=== PATIENT | male | born 1960 | race Caucasian/White ===

== ENCOUNTER 2019-09-26 22:16 | Emergency (ER) | payer OTHER, SELFPAY ==
--- NOTE | ~2019-09-26 | CT_ITS ---
EXAMINATION: CT abdomen pelvis w con DATE: 09/27/2019 01:28 INDICATION: Right lower quadrant abdominal pain. Nausea and vomiting. TECHNIQUE: Computed tomography (CT) of the abdomen and pelvis was performed with 100 cc Omnipaque 350 intravenous contrast. Automated exposure control and iterative reconstruction technique were employe d. Exam dose: 675.06 mGy-cm total exam DLP. COMPARISON: None. FINDINGS: Calcified pulmonary granulomas. The lower lung zones are clear of infiltrate or consolidati on. Normal heart size. No pericardial or pleural effusion. The liver, gallbladder, bile ducts, pancreas, pancreatic duct and spleen and adrenal glands are unrem arkable. Small upper pole left renal cyst. The kidneys are unremarkable, without urinary tract calculus or hyd roureteronephrosis. The urinary bladder is unremarkable. Prostate enlargement and calcifications. Normal caliber and mild atherosclerotic calcification of the abdominal aorta and iliac arteries. No i ntraperitoneal or retroperitoneal or pelvic mass lesion or adenopathy or ascites. Normal appendix. No bowel obstruction or intraperitoneal free air. Small fat-containing umbilical hernia. Bilateral L5 pars interarticularis defects with grade 1 anterolisthesis at L5-S1. Moderate degenerative disc disease at L3-4. IMPRESSION: Normal appendix Bilateral L5 pars intra-articular is defects with grade 1 anterolisthesis at L5-S1 Reviewed, dictated and finalized at [facility]. Reviewed, dictated and finalized at [facility]. DRAFTSMAN IMPRESSION: Normal appendix Bilateral L5 pars intra-articular is defects with grade 1 anterolisthesis at L5 -S1
[2019-09-26 22:44] VITALS: BP 155/86; PULSE 99; RESP 22; TEMP 37.4; O2SAT 100
[2019-09-26 22:47] LABS: Basophils Absolute Auto 0.1 K/mm3 (0.0-0.1); Basophils Percent Auto 0.8 % (0.2-1.2); Eosinophils Percent Auto 0.1 % (0-4.4); Hematocrit 45.3 % (42.0-52.0); Hemoglobin 15.1 g/dL (14.0-18.0); Immature Granulocyte Absolute 0.02 K/mm3 (0.00-0.031); Immature Granulocyte Percent A 0.3 % (0-0.5); Lymphocytes Absolute Auto 1.67 K/mm3 (0.9-3.2); Lymphocytes Percent Auto 21.1 % (18.3-44.2); Mean Corpuscular HGB Conc 33.3 g/dl (32-36); Mean Corpuscular Volume 89.9 fl (80-100); Mean Platelet Volume 9.6 fl (7.4-10.4); Monocytes Absolute Auto 0.6 K/mm3 (0.1-0.6); Monocytes Percent Auto 7.1 % (2.6-8.5); Neutrophils Absolute Auto 5.6 K/mm3 (1.3-6.7); Neutrophils Percent Auto 70.6 % (45.5-73.1); Platelet Count Result 270 k/mm3 (150-375); Red Blood Count 5.04 M/mm3 (4.6-6.20); Red Cell Distribution Width 12.7 % (11.5-14.5); White Blood Count 7.9 K/mm3 (4.5-10.0)
[2019-09-26 22:59] LABS: Alanine Aminotransferase 29 U/L (4-50); Albumin Level 4.7 g/dL (3.5-5.1); Alkaline Phosphatase 58 U/L (38-126); Aspartate Amino Transferase 21 U/L (17-59); Bilirubin,Total 0.5 mg/dL (0.2-1.3); Blood Urea Nitrogen 10 mg/dL (9-20); Calcium 10.2 mg/dL (8.4-10.2); Carbon Dioxide 26 mmol/L (22-30); Chloride 99 mmol/L (98-107); Estimated CRCL calculation 73 ml/min; Estimated Glomerular Filt Rate > 60; Glucose 133 mg/dL (75-110); Lipase 51 U/L (23-300); Potassium 3.8 mmol/L (3.4-5.0); Sodium 137 mmol/L (137-145)
[2019-09-27 00:35] VITALS: BP 158/98; PULSE 83; RESP 16; TEMP 36.9; O2SAT 97
--- NOTE | 2019-09-27 00:41 | ED.ABDPAIN ---
HPI - Abdominal Pain General Chief Complaint: Abdominal Pain Stated Complaint: ABD PAIN Time Seen by Provider: 09/27/19 00:37 Source: patient Mode of arrival: ambulatory Limitations: no limitations History of Present Illness HPI narrative: A 59 y/o male presents to the ED with c/o burning lower ABD pain. He states that the ABD pain has been intermittent the past 2 months but worsened on 09/24/19. Pt reports loose stool and nausea, but denies vomiting, CP, flank pain, dysuria, ABD bloating, hematuria, and back pain. He took Emetrol yesterday with no relief. He denies any sick contacts or being around young children. Pt adds that he occasionally has a pinching sensation in his right flank when he sits down and watches television. Dr. Sweet is his PCP. MD elicited complaint: abdominal pain (Lower) Onset (ago): month(s) (2) Pain Consistency: intermittent and other (Worsening) Location: other (Lower) Quality: burning Relieving factors: nothing Associated symptoms: nausea and other (Loose stools) Related Data Allergies Allergy/AdvReac Type Severity Reaction Status Date / Time amoxicillin [From Augmentin] Allergy Unknown Verified 09/27/19 00:41 clavulanic acid Allergy Unknown Verified 09/27/19 00:41 [From Augmentin] iohexol Allergy Itching Verified 09/27/19 01:40 [From contrast - CT, X-RAY] prochlorperazine Allergy Unknown Verified 09/27/19 00:40 [From Compazine] Bgdppil-Zvn-Fmu Reductase Allergy Unknown Verified 09/27/19 00:41 Inhibitor Review of Systems Review of Systems: Narrative: CONSTITUTIONAL: Denies fever, chills, or sweats. EYES: Denies visual changes, redness, or discharge. ENT: Denies rhinorrhea, congestion, sore throat, or otalgia. CARDIOVASCULAR: Denies chest pain, palpitations, or edema. RESPIRATORY: Denies cough or dyspnea. GASTROINTESTINAL: Denies flank pain, ABD bloating, vomiting, or diarrhea. Reports nausea, loose stools, and lower ABD pain. GENITOURINARY: Denies dysuria or hematuria. SKIN: Denies rash or itching. MUSCULOSKELETAL: Denies back pain, joint pain, or myalgia. NEUROLOGIC: Denies headache, numbness, or weakness. All systems reviewed & are unremarkable except as noted in HPI and below PMFSH Past Medical History Medical History (Updated 09/27/19 @ 03:50 by Monet Parker MD) Healthy adult Surgical History Surgical History (Updated 09/27/19 @ 00:49 by Yvonne Ng) No pertinent past surgical history Social History Social History (Updated 09/27/19 @ 00:56 by Yvonne Ng) Smoking status: Unknown if ever smoked Gender identity (if verbalized by the patient): Male Exam Narrative: Exam Narrative: GENERAL: Well-appearing, well-nourished, and in no acute distress. HEAD: Normocephalic, atraumatic. EYES: PERRLA and EOMI. ENT: Nares clear, no rhinorrhea or epistaxis. Mucous membranes moist. NECK: Supple. CHEST: Clear to auscultation. No respiratory distress. HEART: Regular rate and rhythm. No murmur heard. Normal peripheral pulses. ABDOMEN: Soft, mild RLQ tenderness, nondistended, normal active bowel sounds. No rebound. No guarding. EXTREMITIES: Normal range of motion. No edema. SKIN: Warm, dry, no rash. NEURO: No focal deficits. Alert and oriented X3. Course Course Emergency Course: Patient's abdomen is soft without significant pain or signs of surgical abdomen on serial exams. Patient has no recurrent right lower quadrant pain. Lab and imaging evaluations are reviewed and patient is felt to be a reasonable candidate for outpatient management. At this point, no leukocytosis, no focal pain, I do not feel his symptoms are consistent with appendicitis. Patient was instructed as to limitations of imaging and lab evaluation and encouraged to return to the emergency department or primary physician for repeat exam in 12 hours if continued or worsening pain. Vital Signs Vital signs: Vital Signs Temperature 37.4 C 09/26/19 22:44 Pulse Rate 99 09/26/19 22:44 Respira
[2019-09-27 00:57] LABS: Add Urine Microscopic? YES; Appearance Urine Clear (Clear); Bilirubin Urine Negative (Negative); Blood Urine Negative (Negative); Color Urine Yellow (Yellow); Glucose Urine UA Negative (Negative); Ketones Urine Negative (Negative); Leukocyte Esterase Ur Negative LEU/UL (Negative); Mucus Urine Few /lpf; Nitrate Urine Negative (Negative); Protein Urine Negative (Negative); RBC Urine 0-2 /hpf (0-2); Specific Grav Ur 1.019 (1.001-1.035); WBC Urine 0-3 /hpf
[2019-09-27] MEDS: FAMOTIDINE 20 MG/2 ML VIAL IV PUSH (01:14)
[2019-09-27] MEDS: SODIUM CHLORIDE 0.9% IV 1,000 ML 999 ML IV CONT (01:16)
--- NOTE | 2019-09-27 01:20 | PC.NURSE ---
Patient refused Morphine at this time. EDP Elena notified.
--- NOTE | 2019-09-27 01:33 | PC.NURSE ---
Patient states he began to feel extremely itchy after IV contrast dye, patient denies any SOB or difficulty breathing. Per EDP Elena verbal order read-back give 50mg Benadryl IVP.
[2019-09-27 01:35] VITALS: BP 111/70; PULSE 102; RESP 16; O2SAT 99
[2019-09-27 01:45] VITALS: TEMP 36.9
[2019-09-27 03:00] VITALS: BP 134/80; PULSE 81; RESP 18; O2SAT 98
[2019-09-27 04:26] VITALS: BP 138/83; PULSE 80; RESP 14; TEMP 36.4; O2SAT 97
== END 2019-09-27 04:29 | disposition home or self-care (01) ==
PROVIDERS: Emergency Medicine; Emergency Provider Emergency Medicine; PCP Internal Medicine
DX: K52.9 Noninfective gastroenteritis and colitis, unspecified (principal)
CPT/HCPCS: 36415; 74177; 80053; 81001; 83690; 85025; 96361; 96374; 96375; 99284; J0131; J1200; J7030; Q9967

== ENCOUNTER 2019-09-28 00:21 | Emergency (ER) | payer OTHER, SELFPAY ==
--- NOTE | ~2019-09-28 | XR_ITS ---
XR chest 2V DATE: 09/28/2019 00:54 INDICATION: Substernal chest pain TECHNIQUE: PA and lateral views COMPARISON: None FINDINGS: Normal heart size. No hilar or mediastinal enlargement. No pulmonary infiltrate or consolid ation, pleural effusion or pulmonary vascular congestion or pneumothorax. Thoracolumbar scoliosis. IMPRESSION: No active cardiopulmonary disease Thoracolumbar scoliosis Reviewed, dictated and finalized at [facility] VE DIRECTORY SPECIALIST
[2019-09-28 00:26] VITALS: BP 172/103; PULSE 94; PULSE 99; RESP 18; TEMP 36.8; O2SAT 97
--- NOTE | 2019-09-28 00:30 | ECG_ITS ---
Measurements Intervals [place] Rate: 93 P: 46 WY: 149 QRS: 34 QRSD: 108 T: 11 QT: 356 QTc: 445 Interpretive Statements SINUS RHYTHM BORDERLINE ST-T WAVE ABNORMALITY- ANTEROLAT/INF LEADS BASELINE ARTIFACT- II, III, AVR, AVF BORDERLINE ECG Electronically Signed On 09-28-2019 8:10:59 DOOR SERVICEMAN by Devang Whitehead D.O.
[2019-09-28 00:47] LABS: Basophils Absolute Auto 0.1 K/mm3 (0.0-0.1); Eosinophils Percent Auto 0.1 % (0-4.4); Hematocrit 43.5 % (42.0-52.0); Hemoglobin 14.7 g/dL (14.0-18.0); Immature Granulocyte Absolute 0.04 K/mm3 (0.00-0.031); Immature Granulocyte Percent A 0.5 % (0-0.5); Lymphocytes Absolute Auto 2.17 K/mm3 (0.9-3.2); Lymphocytes Percent Auto 26.1 % (18.3-44.2); Mean Corpuscular HGB Conc 33.8 g/dl (32-36); Mean Corpuscular Hemoglobin 30.3 pg (26-34); Mean Corpuscular Volume 89.7 fl (80-100); Mean Platelet Volume 9.7 fl (7.4-10.4); Monocytes Absolute Auto 0.7 K/mm3 (0.1-0.6); Monocytes Percent Auto 8.2 % (2.6-8.5); Neutrophils Absolute Auto 5.3 K/mm3 (1.3-6.7); Neutrophils Percent Auto 64.1 % (45.5-73.1); Platelet Count Result 267 k/mm3 (150-375); Red Blood Count 4.85 M/mm3 (4.6-6.20); Red Cell Distribution Width 12.5 % (11.5-14.5); White Blood Count 8.3 K/mm3 (4.5-10.0)
[2019-09-28 00:56] LABS: Partial Thromboplastin Time 24.7 SECONDS (22.3-36.8); Prothrombin Time 12.5 Seconds (11.1-14.7)
--- NOTE | 2019-09-28 00:56 | ED.CHESTPAIN ---
HPI - Chest Pain General Chief Complaint: Chest Pain Stated Complaint: CP Time Seen by Provider: 09/28/19 00:29 Source: patient and RN notes reviewed Mode of arrival: ambulatory Limitations: no limitations History of Present Illness HPI narrative: A 59 y/o male presents to the ED with intermittent, burning, stersubnal CP beginning today. He states that he was seen here yesterday d/t ABD pain and was dx with gastroenteritis. He reports that he picked up Bentyl and Zofran today and shortly after he took them he developed burning substernal CP. He notes increased anxiety, intermittent nausea, and intermittent DULCE hand and DULCE foot tingling. He also notes that his pain is aggravated when he lays flat and alleviated when he sits up. He denies any radiation of the pain. He also denies any sweats, fevers, chills, SOB, cough, or back pain. MD complaint: chest pain Onset (ago): hour(s) (today) Timing of current episode: episodic Onset: other (shortly after taking his new Bentyl and Zofran) Pain location: substernal Pain radiation: none Quality: burning Relieving factors: sitting upright Exacerbating factors: other (laying down) Context: new medications Associated symptoms: nausea and other (increased anxiety and intermittent DULCE hand and DULCE foot tingling) Risk Factors Coronary artery disease risk factors: none Related Data Allergies Allergy/AdvReac Type Severity Reaction Status Date / Time amoxicillin [From Augmentin] Allergy Unknown Verified 09/27/19 00:41 clavulanic acid Allergy Unknown Verified 09/27/19 00:41 [From Augmentin] iohexol Allergy Itching Verified 09/27/19 01:40 [From contrast - CT, X-RAY] prochlorperazine Allergy Unknown Verified 09/27/19 00:40 [From Compazine] Lqqoemw-Vsg-Obu Reductase Allergy Unknown Verified 09/27/19 00:41 Inhibitor Review of Systems Review of Systems: Narrative: CONSTITUTIONAL: Denies fever, chills, or sweats. CARDIOVASCULAR: Reports substernal CP. RESPIRATORY: Denies cough or dyspnea. GASTROINTESTINAL: Reports nausea. MUSCULOSKELETAL: Denies back pain. NEUROLOGIC: Reports DULCE hand tingling and DULCE foot tingling. PSYCHIATRIC: Reports anxiety. All systems reviewed & are unremarkable except as noted in HPI and below PMFSH Past Medical History Medical History Healthy adult Surgical History Surgical History No pertinent past surgical history Social History Social History Smoking status: Unknown if ever smoked Gender identity (if verbalized by the patient): Male Exam Narrative: Exam Narrative: GENERAL: Well-appearing, well-nourished, and in no acute distress. HEAD: Normocephalic, atraumatic. EYES: PERRLA and EOMI. ENT: Nares clear, no rhinorrhea or epistaxis. Mucous membranes moist. NECK: Supple. CHEST: Clear to auscultation. No respiratory distress. No chest wall tenderness. HEART: Regular rate and rhythm. No murmur heard. Normal peripheral pulses. ABDOMEN: Soft, nontender, nondistended, normal active bowel sounds. EXTREMITIES: Normal range of motion. No edema. SKIN: Warm, dry, no rash. NEURO: No focal deficits. Alert and oriented X3. Course Vital Signs Vital signs: Vital Signs Temperature 36.8 C 09/28/19 00:26 Pulse Rate 99 09/28/19 00:26 Respiratory Rate 18 09/28/19 00:26 Blood Pressure 172/103 H 09/28/19 00:26 Pulse Oximetry 97 09/28/19 00:26 Temperature 36.8 C 09/28/19 00:26 Pulse Rate 75 09/28/19 03:40 Respiratory Rate 18 09/28/19 03:40 Blood Pressure 129/74 09/28/19 03:40 Pulse Oximetry 96 09/28/19 03:40 MDM - Chest Pain MDM Narrative Medical decision making narrative: The patient presented for evaluation of chest pain. Patient's pain is been intermittent throughout the day, is worse when he is lying down and worsened with eating. Patient also reports he has had some difficulty s
[2019-09-28 00:57] LABS: Blood Urea Nitrogen 9 mg/dL (9-20); Calcium 9.7 mg/dL (8.4-10.2); Carbon Dioxide 26 mmol/L (22-30); Chloride 99 mmol/L (98-107); Estimated Glomerular Filt Rate > 60; Glucose 103 mg/dL (75-110); Potassium 3.9 mmol/L (3.4-5.0); Sodium 141 mmol/L (137-145)
[2019-09-28 01:10] LABS: Troponin I < 0.012 ng/mL (0.000-0.034)
[2019-09-28] MEDS: NITROGLYCERIN SL 0.4 MG TABLET SUBLINGUAL (01:45)
[2019-09-28] MEDS: MORPHINE SULFATE 4 MG/ML INJ IV PUSH (01:46)
[2019-09-28] MEDS: BELLADONNA ALK/PHENOB ELIX 10 ML, MAG HYDROX/ALUMINUM HYD/SIMETH 30 ML, LIDOCAINE HCL 2... PO (01:46)
[2019-09-28 03:40] VITALS: BP 129/74; PULSE 75; RESP 18; O2SAT 96
[2019-09-28 04:12] LABS: Troponin I < 0.012 ng/mL (0.000-0.034)
[2019-09-28 05:07] VITALS: BP 126/77; PULSE 76; RESP 18; O2SAT 98
== END 2019-09-28 05:08 | disposition home or self-care (01) ==
PROVIDERS: Emergency Provider Emergency Medicine; PCP Internal Medicine
DX: R07.89 Other chest pain (principal); R94.31 Abnormal electrocardiogram [ECG] [EKG]
CPT/HCPCS: 36415; 71046; 80048; 84484; 85025; 85610; 85730; 93005; 96374; 99284; A9270; J2270

== ENCOUNTER 2019-10-13 01:50 | Day surgery (SDC) | payer OTHER, SELFPAY ==
[2019-10-08 13:36] VITALS: BMI 29.7
[2019-10-13 10:02] VITALS: BP 146/81; PULSE 88; RESP 18; TEMP 36.6; O2SAT 98; BMI 30.4
[2019-10-13] MEDS: LACTATED RINGERS 1,000 ML 150 ML IV CONT (10:15)
--- NOTE | 2019-10-13 10:30 | WPDANESEPPF ---
Anes - Initial Pre Proc Eval Procedure: Operation Date: 10/13/19 11:00 Proposed Procedures p Esophagogastroduodenoscopy - Narayan Nixon MD Date/Time: 10/13/19 10:30 Surgeon: Narayan Nixon MD Pre Op Diagnosis: Epigastric Pain/ Dysphagia Patient Data Age: 59 Gender: M Height: 5 ft 7 in Weight: 88.3 kg Last Vital Signs Temp 36.6 C 10/13/19 10:02 Pulse 88 10/13/19 10:02 Resp 18 10/13/19 10:02 BP 146/81 H 10/13/19 10:02 Pulse Ox 98 10/13/19 10:02 Allergies Allergy/AdvReac Type Severity Reaction Status Date / Time amoxicillin [From Augmentin] Allergy Unknown Verified 10/13/19 10:01 clavulanic acid Allergy Unknown Verified 10/13/19 10:01 [From Augmentin] iohexol Allergy Itching Verified 10/13/19 10:01 [From contrast - CT, X-RAY] prochlorperazine Allergy Unknown Verified 10/13/19 10:01 [From Compazine] Yixwaid-Wjy-Xuz Reductase Allergy Unknown Verified 10/13/19 10:01 Inhibitor Home Medications Medication Instructions Recorded Confirmed Type dicyclomine 10 mg PO BID 5 Days #10 cap 09/27/19 10/08/19 Rx famotidine [Pepcid] 20 mg PO BID 15 Days #30 tablet 09/27/19 10/08/19 Rx ondansetron HCl [Zofran] 4 mg PO Q8H #14 tablet 09/27/19 10/08/19 Rx ascorbic acid (vitamin C) [Vitamin 1 g PO DAILY 10/08/19 10/08/19 History C] cholecalciferol (vitamin D3) 5,000 unit PO DAILY 10/08/19 10/08/19 History [Vitamin D3] multivitamin 1 tablet PO DAILY 10/08/19 10/08/19 History Patient hx anesthesia problems: none Family hx anesthesia problems: none PMFSH Past Medical History Medical History (Updated 10/13/19 @ 10:31 by Vish Whitlock MD) Healthy adult Hyperlipidemia Obesity Surgical History Surgical History No pertinent past surgical history Social History Social History Smoking status: Unknown if ever smoked Gender identity (if verbalized by the patient): Male Anes - Eval Final PreProcedure Day of Procedure 10/13/19 10:30 Patient weight: obese Heart: regular rate and rhythm Lungs: clear to auscultation Airway: Mallampati scale class II Last oral intake: >/= 8 hours ASA classification: II Emergent: no Anesthetic plan: proceed Anesthesia type and monitoring: general GIVS and standard monitoring Informed Consent: The patient's anesthetic plan and its attendant risks and benefits were discussed with the patient/family/POA. Questions were solicited and answers provided to the satisfaction of the patient/family/POA.
--- NOTE | 2019-10-13 10:43 | PM.HPGS ---
History of Present Illness History of Present Illness Consent: Risks, benefits, and alternatives have been discussed and questions answered. Patient agrees to proceed with procedure. Chief complaint: Epigastric Pain/ Dysphagia Narrative: Endy Nixon is a 59 year old W male referred for gastroscopy for evaluation of epigastric abdominal pain which was severe for several days associated with nausea but no vomiting. This precipitated a visit to the emergency room. Patient had a CT scan of the abdomen and pelvis which was negative blood work was normal. There is placed on Pepcid his pain is improved but not completely resolved. Patient had no lower GI symptoms. He states he had a colonoscopy 12 years ago and had a colo guard test a year ago which was negative. No family history of gallbladder disease. Patient denies any imfc-ygs-vjlhzoi nonsteroidal inflammatory drugs. No prior history of peptic ulcer disease. Patient also with a chronic history of intermittent solid food dysphagia usually with meats if he does not chew this well. He does have occasional heartburn. [facility] Past Medical History Medical History Healthy adult Hyperlipidemia Obesity Surgical History Surgical History No pertinent past surgical history Social History Social History Smoking status: Unknown if ever smoked Gender identity (if verbalized by the patient): Male Meds Home Medications and Allergies Home Medications Medication Instructions Recorded Confirmed Type dicyclomine 10 mg PO BID 5 Days #10 cap 09/27/19 10/08/19 Rx famotidine [Pepcid] 20 mg PO BID 15 Days #30 tablet 09/27/19 10/08/19 Rx ondansetron HCl [Zofran] 4 mg PO Q8H #14 tablet 09/27/19 10/08/19 Rx ascorbic acid (vitamin C) [Vitamin 1 g PO DAILY 10/08/19 10/08/19 History C] cholecalciferol (vitamin D3) 5,000 unit PO DAILY 10/08/19 10/08/19 History [Vitamin D3] multivitamin 1 tablet PO DAILY 10/08/19 10/08/19 History Allergies Allergy/AdvReac Type Severity Reaction Status Date / Time amoxicillin [From Augmentin] Allergy Unknown Verified 10/13/19 10:01 clavulanic acid Allergy Unknown Verified 10/13/19 10:01 [From Augmentin] iohexol Allergy Itching Verified 10/13/19 10:01 [From contrast - CT, X-RAY] prochlorperazine Allergy Unknown Verified 10/13/19 10:01 [From Compazine] Amfnlfd-Jht-Ikt Reductase Allergy Unknown Verified 10/13/19 10:01 Inhibitor Vital Signs Vital Signs - 24 hr 10/13/19 10:02 Temperature 36.6 C Pulse Rate 88 Respiratory Rate 18 Blood Pressure 146/81 H Pulse Oximetry 98 Exam Const: Orientation/consciousness: patient oriented x3 Resp: Auscultation: clear to auscultation bilaterally Cardio: Rate: regular rate Rhythm: regular rhythm Heart sounds: no murmurs GI: GI Palp: Yes Soft to palpation, No Tenderness to palpation present (GI), Yes No hepatosplenomegaly present and No Palpable mass present Auscultation: normal bowel sounds Neuro: General: patient oriented x3 and no focal motor deficits Extrem: General: no pedal edema Assessment and Plan Additional Plan gastroscopy for evaluation of epigastric abdominal pain associated with dyspepsia and intermittent solid food dysphagia
[2019-10-13 11:25] VITALS: BP 123/75; PULSE 84; RESP 20; O2SAT 96
[2019-10-13 11:35] VITALS: BP 141/83; PULSE 76; RESP 21; O2SAT 96
[2019-10-13 11:45] VITALS: BP 133/80; PULSE 73; RESP 20; O2SAT 96
--- NOTE | 2019-10-13 13:34 | SUR.PHASEII ---
ELISEO AT DR FINE OFFICE WAS NOTIFIED OF A POSITIVE H PYLORI RESULT ON RANGEL CAM
== END 2019-10-13 12:05 | disposition home or self-care (01) ==
PROVIDERS: PCP Internal Medicine; Visit Provider Internal Medicine Gastroenterology
PROC: 0DJ08ZZ Inspection of Upper Intestinal Tract, Via Natural or Artificial Opening Endoscopic (ICD-10-PCS; CPT 43235; principal; 2019-10-13 11:00)
DX: K29.50 Unspecified chronic gastritis without bleeding (principal); B96.81 Helicobacter pylori [H. pylori] as the cause of diseases classified elsewhere; K20.8 Other esophagitis; R13.10 Dysphagia, unspecified; E78.5 Hyperlipidemia, unspecified; E66.9 Obesity, unspecified; Z68.30 Body mass index [BMI] 30.0-30.9, adult
CPT/HCPCS: 43239; 87081; 88305; 88342; J2001; J2704; J7120

== ENCOUNTER 2021-12-14 11:26 | Emergency (ER) | payer BC, SELFPAY ==
[2021-12-14 11:38] VITALS: BP 164/84; PULSE 79; RESP 16; TEMP 36.6; O2SAT 98
--- NOTE | 2021-12-14 11:58 | ED.URI ---
HPI - URI/Sore Throat General Chief Complaint: Upper Respiratory Infection Stated Complaint: COUGH/CONGESTION Time Seen by Provider: 12/14/21 11:40 Source: patient Mode of arrival: ambulatory Limitations: no limitations History of Present Illness HPI Narrative: Mr. Nixon is a 61-year-old male patient presenting to the clinic today with complaints of nasal congestion and cough x2 and half weeks. He reports that his son got this at the same time he did however his son symptoms have improved and his did not. He denies any fever or chills. He denies any known exposure member with COVID, flu, or strep. Has been blowing out clear nasal drainage at times has had a little rust colored drainage. He denies any sinus pressure or headaches. Feels as though drainage is running down in the back of his throat. He denies any foul taste. Patient wants to get this taken care of this week because he is going out of town next week. MD elicited complaint: cough and nasal congestion Related Data Home Medications Medication Instructions Recorded Confirmed ascorbic acid (vitamin C) [Vitamin 1 g PO DAILY 10/08/19 10/08/19 C] cholecalciferol (vitamin D3) 5,000 unit PO DAILY 10/08/19 10/08/19 [Vitamin D3] multivitamin 1 tablet PO DAILY 10/08/19 10/08/19 cyanocobalamin-cobamamide [B12] evelyn SUBLINGUAL 12/14/21 12/14/21 Allergies Allergy/AdvReac Type Severity Reaction Status Date / Time amoxicillin [From Augmentin] Allergy Unknown Verified 12/14/21 11:38 clavulanic acid Allergy Unknown Verified 12/14/21 11:38 [From Augmentin] iohexol Allergy Itching Verified 12/14/21 11:38 [From contrast - CT, X-RAY] prochlorperazine Allergy Unknown Verified 12/14/21 11:38 [From Compazine] Rvtmwty-TUQ-FxC Reductase Allergy Unknown Verified 12/14/21 11:38 Inhibitor [Dwxhyaa-Bna-Dvm Reductase Inhibitor] Review of Systems Review of Systems: Pertinent positives per HPI. Patient denies any fever, chills, rash, headache, visual changes, dizziness, sore throat, shortness of breath, chest pain, palpitations, nausea, vomiting, diarrhea, constipation, abdominal pain, or any urinary issues. PMFSH Past Medical History Medical History (Updated 12/14/21 @ 12:00 by Rodolfo Jacobs APRN) Healthy adult Hyperlipidemia Obesity Surgical History Surgical History No pertinent past surgical history Social History Social History Smoking status: Unknown if ever smoked Gender identity (if verbalized by the patient): Male Comments At the time of my signature, I reviewed and agree with the nursing past medical, surgical, social, and family history. There is no relevant family history pertinent to the patient complaint. Exam Narrative: General: Well-developed, well nourished, in no apparent distress Head: Normocephalic, atraumatic Eyes: Pupils equally round and reactive to light bilaterally, EOM intact, sclera and conjunctive clear, no discharge, lids normal Ears: Bilateral cerumen impaction, ear lavage performed and lighted curette was used to remove remaining debris in external ear canal, TMs intact and clear, ear canals clear, no drainage, grossly hearing normal. Nose: Nares patent, clear nasal discharge, mild inflammation with some scabbing noted to the turbinates, no sinus tenderness. Mouth: Oral pharynx without lesions or masses, good dentition, MMM. Postnasal drip Neck: Supple, trachea midline, no enlargement of anterior or posterior cervical nodes, no thyroid masses or goiter palpable. Cardio: Regular rate and rhythm, s1 and s2 normal, no murmur appreciated. Resp: Clear to auscultation bilaterally, no rhonchi, rales, wheezing or rubs Course Course Emergency Course: Portions of this record may have been created with voice recognition software. Level of Care: Express Care Visit Vital Sig
== END 2021-12-14 12:07 | disposition home or self-care (01) ==
PROVIDERS: Emergency Provider Nurse Practitioner Family; PCP Internal Medicine
DX: R09.82 Postnasal drip (principal); J30.9 Allergic rhinitis, unspecified; H61.23 Impacted cerumen, bilateral; E78.5 Hyperlipidemia, unspecified; E66.9 Obesity, unspecified; Z68.31 Body mass index [BMI] 31.0-31.9, adult
CPT/HCPCS: 69210; 99213; A9270; G0463